=== PATIENT | female | born 1970 ===

== ENCOUNTER 2018-08-14 12:07 | Emergency (ER) | payer OTHER ==
[~2018-08-14] VITALS: Ht 157.5 cm; Wt 76.7 kg
== END 2018-08-14 19:46 | disposition home or self-care (01) ==
LOC: ER 12:07
DX: N83.291 Other ovarian cyst, right side (principal)

== ENCOUNTER 2018-08-20 08:18 | Outpatient (CLI) | payer OTHER | END 2018-08-20 08:37 | disposition home or self-care (01) | LOC: RAD 08:18 | DX: Z12.31 Encounter for screening mammogram for malignant neoplasm of breast (principal); N95.1 Menopausal and female climacteric states; E03.8 Other specified hypothyroidism; Z00.00 Encounter for general adult medical examination without abnormal findings; M85.80 Other specified disorders of bone density and structure, unspecified site ==

== ENCOUNTER → 2018-08-20 | Outpatient (CLI) | payer OTHER | END | disposition home or self-care (01) | LOC: NUCLEAR 11:00 | DX: M81.0 Age-related osteoporosis without current pathological fracture (principal); E03.9 Hypothyroidism, unspecified; N95.1 Menopausal and female climacteric states ==

== ENCOUNTER 2022-08-15 13:21 | Emergency (ER) | payer OTHER ==
[~2022-08-15] VITALS: Ht 157.5 cm; Wt 80.7 kg
== END 2022-08-15 18:01 | disposition home or self-care (01) ==
LOC: ER 13:21
DX: M94.0 Chondrocostal junction syndrome [Tietze] (principal)